=== PATIENT | male | born 1985 | race Caucasian/White ===

== ENCOUNTER 2019-01-05 13:59 | Emergency (ER) | payer OTHER, BC ==
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
[2019-01-05] MEDS ORDERED: Diphtheria,Pertussis(Acell),Tetanus Vaccine 0.5 ML Syringe IM ONE (14:24)
[2019-01-05] MEDS ORDERED: Lidocaine 1% 10 ML MDV INJECT ONE (14:56)
--- NOTE | 2019-01-05 15:00 | CR ---
Left humerus: AP and slight lateral projection of the left humerus were obtained. No fracture or other bony abnormality is seen. Impression: 1. No discrete bony abnormality is seen on left humerus exam. Diagnostic code #1
--- NOTE | 2019-01-05 15:01 | CR ---
Left forearm: Two views of the left forearm were obtained. Comparison: No previous forearm study. No fracture or other bony abnormality is appreciated. Impression: 1. No abnormality is appreciated on two-view left forearm study. Diagnostic code #1
== END 2019-01-05 16:35 | disposition home or self-care (01) ==
LOC: JD.ED 13:59
DX: S51.012A Laceration without foreign body of left elbow, initial encounter (principal); Z91.018 Allergy to other foods; Z23 Encounter for immunization; V03.90XA Pedestrian on foot injured in collision with car, pick-up truck or van, unspecified whether traffic or nontraffic accident, initial encounter
CPT/HCPCS: 12002; 73060; 73090; 90471; 90700; 99283; J2001